=== PATIENT | male | born 1995 ===

== ENCOUNTER 2025-02-10 05:57 | Emergency (ER) | payer OTHER, SELFPAY ==
[2025-02-10 06:00] VITALS: BP 138/63; PULSE 85; RESP 18; TEMP 36.2; O2SAT 97; BMI 51.0
--- NOTE | 2025-02-10 06:36 | ED_ITS ---
HPI - Dental/Oral General Chief complaint: Dental/Oral Stated complaint: left ear pain, dry tooth socket Time Seen by Provider: 02/10/25 06:28 Source: patient Mode of arrival: ambulatory Limitations: no limitations History of Present Illness ED Provider: Dr. Michelle Angulo HPI Narrative: Patient comes to the emergency room complaining of right mandibular pain. Patient states that 4 days ago, he had wisdom teeth extraction bilaterally. Patient states that he has tried ibuprofen and oxycodone and it is not helping. Patient states that it feels that his mandible is becoming more swollen. Denies any fever or chills. Denies any bleeding. Related Data Previous Rx's ?Medication ?Instructions ?Recorded clindamycin HCl 150 mg capsule 150 mg PO TID 7 days #2 1 caps 02/10/25 (Cleocin HCl) ketorolac 10 mg tablet 10 mg PO Q8H PRN pain #12 ta bs 02/10/25 Allergies Allergy/AdvReac Type Severity Reaction Status Date / Time amoxicillin (AMOXICILLIN) Allergy Unknown HIVES Verified 02/10/25 06:06 sulfamethoxazole (From Allergy Unknown HIVES Verified 02/10/25 06:06 BACTRIM) trimethoprim (From BACTRIM) Allergy Unknown HIVES Verified 02/10/25 06:06 Review of Systems Review of Systems: Constitutional : No Weight loss, No Fever, No Chills, No Night Sweats, No Fatigue, No Malaise ENT/Mouth : Complaining of mandible pain on the left, No Hearing loss, No Ear Pain, No Nasal Congestion, No Sinus Pain, No Hoarseness, No sore throat, No Rhinorrhea, No Swallowing Difficulty Eyes: No Eye Pain, No Swelling, No Redness, No Foreign Body, No Discharge, No Vision Changes Cardiovascular : No Chest Pain, No SOB, No Dyspnea on Exertion, No Orthopnea, No Edema, No Palpitations Respiratory : No Cough, No Sputum, No Wheezing, No Smoke Exposure, No Dyspnea Gastrointestinal : No Nausea, No Vomiting, No Diarrhea, No Constipation, No abdominal Pain, No Hematochezia, No Melena Genitourinary : no irregular bleeding, No Dysuria, No Urinary Frequency, No Hematuria, No Urinary Incontinence, No Urgency, No Flank Pain, No Urinary Flow Changes, No Hesitancy Musculoskeletal : No joint pain, No Myalgias, No Joint Swelling Skin : No Skin Lesions, No rash Neuro : No Weakness, No Numbness, No Paresthesias, No Loss of Consciousness, No Dizziness, No Headache Psych : No Anxiety/Panic, No Depression, No SI/HI/AH/VH, No Social Issues, Heme/Lymph: No Bruising, No Bleeding,No Lymphadenopathy Endocrine : No Polyuria, No Polydipsia, No Temperature Intolerance PMFSH Social History Social History Advance Directives: No Advance Directives Information Provided: No Do you have a plan to hurt others: No Plan Physical Exam Exam: Exam: Appearance: Alert. Oriented X3. No acute distress. Eyes: Pupils equal, round and reactive to light. ENT: Pharynx normal. Patient's left side of the mandible looks slightly swollen, no obvious abscesses that could be possibly drained. Bilateral wisdom teeth has been surgically removed. Neck: Normal inspection. Neck supple. No lymph nodes noted. No crepitus CVS: Normal heart rate and rhythm. Pulses normal. Normal S1 and S2 Respiratory: No respiratory distress. Breath sounds normal. No Wheezing. No rales Abdomen: Soft and nontender. No rigidity. No distention. Skin: Skin warm and dry. Normal skin color. Normal skin turgor. Extremities: No lower extremity edema. No Lacerations. No Rash Neuro: Oriented X 3. No motor deficit. No sensory deficit. Moving all extremities. No slurred speech. CN 2 through 12 grossly intact Psych: calm, cooperative, normal affect Vital Signs: Vital Signs: Last Vital Signs Temp 97.1 F 02/10/25 06:00 Pulse 85 02/10/25 06:00 Resp 18 02/10/25 06:00 BP 138/63 02/10/25 06:00 Pulse Ox 97 02/10/25 06:00 O2 Del Method Room Air 02/10/25 06:00 BMI result Body Mass Index 51.0 Medical Decision Making Medical Decision Making MDM Narrative: I discussed the physical exam with the patient, it is possible that he may have a dry socket. Discussed with the patient to use his prescribed mouthwash and rinse carefully. Patient states that the dentist office is open today and he will call today to see if he can not be seen. Given the new onset swelling, we will start the patient on antibiotics. Patient is allergic to amoxicillin and Bactrim. A prescription has been sent to patient's pharmacy. Here in the ED, patient was given ketorolac. Discharge Plan Discharge Clinical Impression: Pain, dental Patient Disposition: Home, Self-Care Instructions: Dry Socket (ED) Additional Instructions: Please call your dentist's office today. Please follow-up with your primary care physician tomorrow. If you have any worsening or new symptoms, please return to the emergency room or call 911 Prescriptions: New clindamycin HCl [Cleocin HCl] 150 mg capsule 150 mg PO TID 7 Days Qty: 21 0RF ketorolac 10 mg tablet 10 mg PO Q8H PRN (Reason: pain) Qty: 12 0RF Rx Instructions: Do not use this medication with other NSAIDs he is sitting ibuprofen/naproxen. Print Language: Luxem[place]ish
[2025-02-10 06:55] VITALS: BP 138/63; PULSE 85; RESP 18; TEMP 36.2; O2SAT 97
== END 2025-02-10 06:55 | disposition home or self-care (01) ==
PROVIDERS: Emergency Provider Emergency Medicine; PCP Internal Medicine
DX: R68.84 Jaw pain (principal); K08.89 Other specified disorders of teeth and supporting structures
CPT/HCPCS: 96372; 99283; 99284; J1885